=== PATIENT | male | born 1995 | race Caucasian/White ===

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

== ENCOUNTER 2019-07-16 04:18 | Emergency (ER) | payer SELFPAY ==
[~2019-07-16] VITALS: Ht 180.3 cm; Wt 78.0 kg
[~2019-07-16 04:18] MED LIST changes: -HYDR-3307 PO; +HYDR-36 PO
[2019-07-16 04:22] VITALS: BP 156/92
--- NOTE | 2019-07-16 04:26 | NUR ---
BIB [facility] c/o visual hallucinations since his cousin x a few months ago. No psych hx. Denies drug or alcohol use. Patient appears anxious. Respirations even and unlabored.
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
[2019-07-16 05:16] LABS: AMPHETAMINE SCREEN, URINE Negative (Negative); BARBITURATE SCREEN, URINE Negative (Negative); BENZODIAZEPINE SCREEN, URINE Positive (Negative); CANNABINOID SCREEN, URINE Positive (Negative); COCAINE SCREEN, URINE Positive (Negative); METHADONE SCREEN, URINE Negative (Negative); OPIATE SCREEN, URINE Negative (Negative)
[2019-07-16 05:22] LABS: BASOPHILS # (AUTO) 0.03 x10^3/uL (0-0.1); BASOPHILS % (AUTO) 0 % (0-1); EOSINOPHILS # (AUTO) 0.05 x10^3/uL (0-0.4); EOSINOPHILS % (AUTO) 1 % (1-7); LYMPHOCYTES # (AUTO) 0.71 x10^3/uL (1-3.4); LYMPHOCYTES % (AUTO) 11 % (22-44); MD NO; MEAN CORPUSCULAR HEMOGLOBIN 31.4 pg (27.5-34.5); MEAN CORPUSCULAR HGB CONC 33.9 g/dL (33.2-36.2); MEAN CORPUSCULAR VOLUME 92.5 fL (81-97); MEAN PLATELET VOLUME 8.8 fL (7.4-10.4); MONOCYTES # (AUTO) 0.52 x10^3/uL (0.2-0.8); MONOCYTES % (AUTO) 8 % (2-9); NEUTROPHILS # (AUTO) 5.48 x10^3/uL (1.8-6.8); NEUTROPHILS % (AUTO) 81 % (42-75); PLATELET COUNT 275 x10^3/uL (130-400); RED BLOOD COUNT 4.88 x10^6/uL (4.38-5.82); RED CELL DISTRIBUTION WIDTH 12.3 % (9.4-14.8)
[2019-07-16 05:31] LABS: ALBUMIN 4.6 g/dL (3.4-5.0); ANION GAP 6 mmol/L (5-15); CALCIUM 9.6 mg/dL (8.5-10.1); CHLORIDE 105 mmol/L (98-107); CREATININE 1.14 mg/dL (0.7-1.3); SALICYLATE LEVEL 2.5 mg/dL (2.8-20.0); T4 (THYROXINE) 10.4 mcg/dL (4.5-12.1)
--- NOTE | 2019-07-16 05:46 | NUR ---
Patient states he does not want to wait and wants to go home to sleep. Patient unable to get ahold of his sister or brother in law. Patient is AAOx4, GCS 15, and of sound mind. Patient advised of risks of leaving AMA. Patient states he understands and signed AMA. Patient given info for follow up. Taxi voucher given.
== END 2019-07-16 05:50 | disposition left against medical advice (07) ==
LOC: ED 04:54
DX: F23 Brief psychotic disorder (principal)
CPT/HCPCS: 36415; 80048; 80307; 82040; 84436; 84443; 85025; 99284

== ENCOUNTER 2019-09-23 13:00 | Inpatient (IN) | payer MEDICAID ==
[~2019-09-23] VITALS: Ht 180.3 cm; Wt 89.7 kg
[~2019-09-23 13:00] MED LIST changes: +HYDR-3246 PO; -HYDR-36 PO
[2019-09-23] MEDS ORDERED: SODIUM CHLORIDE 0.9% 1,000ML IVBOLUS ONE ×3 (13:30→18:30)
[2019-09-23] MEDS ORDERED: PLEASE ENTER HEIGHT AND WEIGHT MC SCH (13:30)
--- NOTE | 2019-09-23 13:38 | NUR ---
DIFFICULT TO GET PULSE OX ON PT. FINALLY ABLE TO GET A READING OF 94% ON 4L. PT UNCOOPERATIVE AND NOT ANSWERING QUESTIONGS. SAYS "NO" TO NASAL CANNULA AND "I CAN'T BREATHE" WHEN NON REBREATHER IN PLACE. XRAY AT BEDSIDE. PT REMAINS IN 4 POINT RESTRAINTS AT THIS TIME. WILL CONTINUE TO MONITOR
[2019-09-23] MEDS ORDERED: PIPERACILLIN/TAZO/PMX 3.375GM 50 ML IV ONE (14:00)
[2019-09-23 14:04] LABS: ALBUMIN 4.2 g/dL (3.4-5.0); ANION GAP 10 mmol/L (5-15); CHLORIDE 103 mmol/L (98-107)
[2019-09-23 14:12] LABS: ALANINE AMINOTRANSFERASE 1888 U/L (12-78); ALKALINE PHOSPHATASE 97 U/L (45-117); BILIRUBIN,TOTAL 0.9 mg/dL (0.2-1.0); CREATININE 2.46 mg/dL (0.7-1.3); TOTAL PROTEIN 8.2 g/dL (6.4-8.2)
--- NOTE | 2019-09-23 14:13 | NUR ---
INCONTINENT OF STOOL. REMOVED FROM RESTRAINTS. PT KNOWS HIS NAME BUT REMAINS ALTERED.
[2019-09-23] MEDS ORDERED: VANCOMYCIN PER PHARMACY MC PRN ×2 (14:30→18:30)
[2019-09-23] MEDS ORDERED: VANCOMYCIN 1,300 MG in SODIUM CHLORIDE 0.9% 250 ML IV ONE (14:30)
[2019-09-23 14:53] LABS: SALICYLATE LEVEL < 1.7 mg/dL (2.8-20.0)
[2019-09-23] MEDS ORDERED: INSULIN REGULAR 100 UNITS/ML, 3ML VIAL IVPush ONE (15:00)
[2019-09-23] MEDS ORDERED: SODIUM BICARB 8.4%, 50ML SYRINGE IVPush ONE (15:00)
[2019-09-23] MEDS ORDERED: CALCIUM CHLORIDE 10%, 10ML SYR IVPush ONE (15:00)
[2019-09-23] MEDS ORDERED: DEXTROSE 50%, 50ML SYRINGE IVPush ONE (15:00)
[2019-09-23] MEDS ORDERED: PIPERACILLIN/TAZO/PMX 3.375GM 50 ML ONE ×2 (15:01→20:10)
[2019-09-23 15:03] LABS: MEAN CORPUSCULAR HEMOGLOBIN 33.1 pg (27.5-34.5); MEAN CORPUSCULAR HGB CONC 35.5 g/dL (33.2-36.2); MEAN CORPUSCULAR VOLUME 93.4 fL (81-97); RED BLOOD COUNT 5.66 x10^6/uL (4.38-5.82); RED CELL DISTRIBUTION WIDTH 12.3 % (9.4-14.8)
[2019-09-23 15:21] LABS: MEAN PLATELET VOLUME 8.1 fL (7.4-10.4); PLATELET COUNT 204 x10^3/uL (130-400)
[2019-09-23] MEDS ORDERED: INSULIN LISPRO SINGLE DOSE, ER SQ-INSULIN ONE (15:21)
[2019-09-23] MEDS ORDERED: SODIUM BICARBONATE 1 MEQ/ML, 50ML VIAL ONE (15:21)
[2019-09-23] MEDS ORDERED: CALCIUM CHLORIDE 10%, 10ML SYR ONE (15:21)
[2019-09-23 15:24] LABS: MD YES
[2019-09-23 15:39] LABS: C-REACTIVE PROTEIN, QUANT 2.7 mg/dL (0.02-0.49)
[2019-09-23 16:09] LABS: D-DIMER (DIC) 3.02 ug/mlFEU (0.00-0.52); PROTIME 15.4 Seconds (9.6-11.5)
[2019-09-23 16:13] LABS: BAND#(MANUAL) 0.43 x10^3/uL; BANDS%(MANUAL) 10 % (0-7); LYMPH#(MANUAL) 0.39 x10^3/uL (1-3.4); LYMPHS% (MANUAL) 9 % (22-44); METAMYELOCYTES# (MANUAL) 0.26 x10^3/uL (0-0); METAMYELOCYTES% (MANUAL) 6 % (0-1); MONOS#(MANUAL) 0.26 x10^3/uL (0.3-2.7); MONOS% (MANUAL) 6 % (2-9); REACTIVE LYMPHS # (MANUAL) 0.09 x10^3/uL (0-0); REACTIVE LYMPHS % (MANUAL) 2 % (0-0); SEG#(MANUAL) 2.88 x10^3/uL (1.8-6.8); SEGS% (MANUAL) 67 % (42-75)
[2019-09-23 16:14] LABS: <PLATELET ESTIMATE> ADEQUATE; <PLT MORPHOLOGY> NORMAL PLT MORPH; <RBC MORPHOLOGY> NORMAL
--- NOTE | 2019-09-23 17:18 | NUR ---
TO CT AND BACK ON MONITOR WITH RN AND RAILROAD CAR CLEANER. PT RESPONDS TO STIMULUS BUT NOT TALKING. BREATHING EVEN AND UNLABORED.
[2019-09-23] MEDS ORDERED: PHARMACY MAY ADJ FOR RENAL FX MC PRN (18:30)
[2019-09-23] MEDS ORDERED: NALOXONE 0.4 MG/ML, 1ML IVPush PRN (18:30)
[2019-09-23] MEDS ORDERED: SODIUM CHLORIDE 0.9%, 500ML IVBOLUS PRN (18:30)
[2019-09-23 18:50] LABS: ANION GAP 7 mmol/L (5-15); CHLORIDE 108 mmol/L (98-107); CREATININE 2.39 mg/dL (0.7-1.3)
[2019-09-23] MEDS ORDERED: ACETAMINOPHEN 325 MG TABLET PO PRN (19:00)
[2019-09-23] MEDS ORDERED: methylPREDNISolone SOD SUCC 40 MG/ML IV SCH (19:00)
--- NOTE | 2019-09-23 19:02 | NUR ---
REPORT TO FLOOR RN. PT TO BE TRANSPORTED TO FLOOR.
--- NOTE | 2019-09-23 19:09 | NUR ---
RECEIVED BEDSIDE REPORT FROM BELA GODOY. PT LAYING IN BED, BEDRAILS UP, CONNECTED TO CARDIAC, BP AND O2 MONITORS. PT SLIGHTLY TACHY WITH HR 105, SATING 95% ON 7L O2 VIA SIMPLE MASK. PT NOW VERBALLY RESPONSIVE WHEN AROUSED WITH PAINFUL STIMULI. PT STATES HE SNORTED 1 PERCOCET LAST NIGHT. PT STATES HE CAN'T HEAR, BUT KNOWS WHERE HE IS AND WHY HE'S HERE.
[2019-09-23 19:27] LABS: BASOPHILS % (AUTO) 0 % (0-1); EOSINOPHILS % (AUTO) 0 % (1-7); LYMPHOCYTES # (AUTO) 0.25 x10^3/uL (1-3.4); LYMPHOCYTES % (AUTO) 7 % (22-44); MD NO; MEAN CORPUSCULAR HEMOGLOBIN 30.8 pg (27.5-34.5); MEAN CORPUSCULAR HGB CONC 33.2 g/dL (33.2-36.2); MEAN CORPUSCULAR VOLUME 92.9 fL (81-97); MEAN PLATELET VOLUME 8.3 fL (7.4-10.4); MONOCYTES # (AUTO) 0.37 x10^3/uL (0.2-0.8); MONOCYTES % (AUTO) 10 % (2-9); NEUTROPHILS # (AUTO) 2.96 x10^3/uL (1.8-6.8); NEUTROPHILS % (AUTO) 83 % (42-75); PLATELET COUNT 152 x10^3/uL (130-400); RED BLOOD COUNT 5.21 x10^6/uL (4.38-5.82); RED CELL DISTRIBUTION WIDTH 12.2 % (9.4-14.8)
[2019-09-23] MEDS ORDERED: methylPREDNISolone SOD SUCC 40 MG/ML ONE (20:10)
[2019-09-23 20:24] LABS: ANION GAP 7 mmol/L (5-15); CHLORIDE 110 mmol/L (98-107); CREATININE 2.54 mg/dL (0.7-1.3)
[2019-09-23] MEDS: PIPERACILLIN/TAZO/PMX 4.5GM 50 ML IVPB SCH (20:28)
--- NOTE | 2019-09-23 20:42 | NUR ---
PT AWAKES ON OWN TO ASK FOR WATER, PT ABLE TO DRINK WATER ON OWN. PT MEDICATED TO MAR, HOSPITAL BED REQUESTED.
[2019-09-23] MEDS ORDERED: SODIUM BICARBONATE 8.4% 150 MEQ in DEXTROSE 5% 1,000 ML IV SCH (21:00)
[2019-09-23] MEDS ORDERED: HEPARIN 25,000 UNITS/250ML PMX 250 ML ONE (21:01)
[2019-09-23] MEDS ORDERED: HEPARIN 5,000 UNITS/ML, 1ML ONE (21:01)
--- NOTE | 2019-09-23 21:16 | NUR ---
SPOKE WITH KATHLEEN HOSPITALIST. WILL ADVISE PHARMACY THAT WE ARE USING [facility] STEMI PROTOCOL.
[2019-09-23] MEDS: SODIUM CHLORIDE 0.9% 1,000 ML IV SCH (21:21)
[2019-09-23 21:22] LABS: CREATINE KINASE, TOTAL 35727 U/L (39-308)
--- NOTE | 2019-09-23 21:22 | NUR ---
[facility] [phone]
[2019-09-23] MEDS ORDERED: HEPARIN 25,000 UNITS/250ML PMX 250 ML IV PRN (21:30)
[2019-09-23] MEDS ORDERED: HEPARIN 5,000 UNITS/ML, 1ML IV ONE (21:30)
[2019-09-23] MEDS ORDERED: HEPARIN 5,000 UNITS/ML, 1ML IV PRN (21:30)
[2019-09-23] MEDS: SODIUM CHLORIDE 0.9%, 500ML IVBOLUS PRN ×2 (21:41→22:19)
--- NOTE | 2019-09-23 21:42 | NUR ---
PT REMAINS SOMNOLENT, AWAKES TO ASK FOR WATER, OTHERWISE ONLY RESPONSIVE TO PAINFUL STIMULI. RT REQUESTED MULTIPLE TIMES TO COME TO BEDSIDE TO START OPTIFLOW. MD TOBIAS AWARE AND OKAY THAT PT RECEIVED 3.375MG ZOSYN IN STEAD OF 4.5MG, NO ADJUSTMENTS TO BE MADE, NEXT DOSE OF ZOSYN SCHEDULED ON THE MAY. BOTH PAWAN SOMMER AND HOSPITALIST MICHELINE AWARE OF PT'S DECOMPENSATING BP, AWAITING FURTHER ORDERS; NO ORDERS RECIEVED AT THIS TIME. THIS RN HAS BEEN AT BEDSIDE SINCE APPROX 2029 FOR PT CARE. WILL CONTINUE TO MONITOR. Addendum: 09/26/19 at 1748 by RENETTA MD TOBIAS AWARE AND OKAY THAT PT RECEIVED 3.375 GRAMS ZOSYN IN STEAD OF 4.5 GRAMS, NO ADJUSTMENTS TO BE MADE, NEXT DOSE OF ZOSYN SCHEDULED ON THE MAY.
--- NOTE | 2019-09-23 21:56 | NUR ---
VERBAL ORDER FROM HOSPTIALIST FOR ABG. LAB CALLED FOR STAT DRAW.
--- NOTE | 2019-09-23 21:57 | NUR ---
WHEN HEPARIN DRIP ORDERED, CONFIRMED WITH MD THAT NO EKG WAS TO BE ORDERED.
--- NOTE | 2019-09-23 22:27 | NUR ---
Talked to hospitalist about potential for upgrading pt. Hospitalist states to upgrade pt to icu and for this rn to put in the order.
[2019-09-23] MEDS ORDERED: SODIUM BICARB 8.4%, 50ML SYRINGE IVPush STA (23:03)
[2019-09-23 23:06] LABS: MICROSCOPIC AUTO
[2019-09-23 23:14] LABS: AMPHETAMINE SCREEN, URINE Negative (Negative); BARBITURATE SCREEN, URINE Negative (Negative); BENZODIAZEPINE SCREEN, URINE Negative (Negative); CANNABINOID SCREEN, URINE Positive (Negative); COCAINE SCREEN, URINE Positive (Negative); METHADONE SCREEN, URINE Negative (Negative); OPIATE SCREEN, URINE Negative (Negative)
--- NOTE | 2019-09-23 23:57 | NUR ---
PT RESPONSIVE TO PAIN INCLUDING BP CUFF. PT STATES HIS RIGHT LEG HURTS. PT ABLE TO LIFT SELF UP FOR THIS RN TO PLACE A PILLOW UNDER RIGHT SIDE. PT AWARE OF WHEN HIGH FLOW NC IS NOT PROPERLY PLACED IN NOSE AND ASKS THIS RN TO ADJUST IT. HOSPITALIST TO BEDSIDE.
--- NOTE | 2019-09-24 00:14 | NUR ---
REPORT GIVEN TO ENRIQUE POLITICAL WORKER.
[2019-09-24] MEDS ORDERED: SODIUM BICARBONATE 8.4% 150 MEQ in DEXTROSE 5% 1,000 ML IV SCH (00:30)
[2019-09-24 00:32] LABS: ANION GAP 5 mmol/L (5-15); CALCIUM 7.1 mg/dL (8.5-10.1); CHLORIDE 109 mmol/L (98-107); CREATININE 2.76 mg/dL (0.7-1.3)
[2019-09-24 00:49] VITALS: BP 146/71
[2019-09-24 01:00] VITALS: BP 135/78
[2019-09-24] MEDS ORDERED: PHARMACOKINETIC CONSULTATION MC ONE (01:00)
[2019-09-24] MEDS ORDERED: PHARMACOKINETIC MONITORING MC PRN (01:00)
[2019-09-24] MEDS: PIPERACILLIN/TAZO/PMX 4.5GM 50 ML IVPB SCH (01:53)
[2019-09-24 04:00] VITALS: BP 118/78
[2019-09-24 04:54] LABS: ANION GAP 5 mmol/L (5-15); CALCIUM 6.8 mg/dL (8.5-10.1); CHLORIDE 105 mmol/L (98-107); CREATININE 3.22 mg/dL (0.7-1.3)
[2019-09-24 04:59] LABS: MEAN CORPUSCULAR HEMOGLOBIN 30.7 pg (27.5-34.5); MEAN CORPUSCULAR HGB CONC 32.7 g/dL (33.2-36.2); MEAN CORPUSCULAR VOLUME 93.9 fL (81-97); MEAN PLATELET VOLUME 8.6 fL (7.4-10.4); PLATELET COUNT 142 x10^3/uL (130-400); RED BLOOD COUNT 4.59 x10^6/uL (4.38-5.82); RED CELL DISTRIBUTION WIDTH 12.3 % (9.4-14.8)
[2019-09-24 05:18] LABS: MD YES
[2019-09-24 05:20] LABS: LYMPH#(MANUAL) 0.19 x10^3/uL (1-3.4); LYMPHS% (MANUAL) 2 % (22-44); METAMYELOCYTES# (MANUAL) 0.47 x10^3/uL (0-0); METAMYELOCYTES% (MANUAL) 5 % (0-1); MONOS#(MANUAL) 0.38 x10^3/uL (0.3-2.7); MONOS% (MANUAL) 4 % (2-9)
[2019-09-24 05:21] LABS: <PLATELET ESTIMATE> ADEQUATE; <PLT MORPHOLOGY> NORMAL PLT MORPH; <RBC MORPHOLOGY> NORMAL; BAND#(MANUAL) 3.67 x10^3/uL; BANDS%(MANUAL) 39 % (0-7); SEGS% (MANUAL) 50 % (42-75)
[2019-09-24] MEDS ORDERED: PIPERACILLIN/TAZO/PMX 2.25GM 50 ML IV SCH (08:00)
[2019-09-24] MEDS ORDERED: MAGNESIUM SULFATE PMX 2GM/50ML 50 ML IV ONE (08:00)
[2019-09-24] MEDS: SODIUM CHLORIDE 0.9% 1,000 ML IV SCH ×3 (08:32→23:35)
[2019-09-24 08:55] LABS: ALBUMIN 2.6 g/dL (3.4-5.0); ANION GAP 7 mmol/L (5-15); CALCIUM 7.3 mg/dL (8.5-10.1); CHLORIDE 104 mmol/L (98-107)
[2019-09-24 09:15] LABS: ALANINE AMINOTRANSFERASE 1172 U/L (12-78); ALKALINE PHOSPHATASE 45 U/L (45-117); BILIRUBIN,TOTAL 1.1 mg/dL (0.2-1.0); CREATININE 3.52 mg/dL (0.7-1.3); TOTAL PROTEIN 5.4 g/dL (6.4-8.2)
[2019-09-24] MEDS: AMPICILLIN/SULBACTAM 3 GM in SODIUM CHLORIDE 0.9% 100 ML IV SCH ×2 (11:15→20:30)
[2019-09-24 13:00] VITALS: BP 135/90
[2019-09-24] MEDS: HEPARIN 5,000 UNITS/ML, 1ML SQ SCH (17:49)
[2019-09-24 20:31] VITALS: BP 135/90
[2019-09-24 23:31] VITALS: BP 134/88
[2019-09-25] MEDS: AMPICILLIN/SULBACTAM 3 GM in SODIUM CHLORIDE 0.9% 100 ML IV SCH ×2 (04:38→12:30)
[2019-09-25] MEDS: SODIUM CHLORIDE 0.9% 1,000 ML IV SCH ×3 (05:55→20:35)
[2019-09-25] MEDS: HEPARIN 5,000 UNITS/ML, 1ML SQ SCH ×2 (05:56→20:49)
[2019-09-25 06:28] LABS: CHLORIDE 106 mmol/L (98-107)
[2019-09-25 06:34] LABS: MEAN CORPUSCULAR HEMOGLOBIN 31.1 pg (27.5-34.5); MEAN CORPUSCULAR HGB CONC 33.9 g/dL (33.2-36.2); MEAN CORPUSCULAR VOLUME 91.6 fL (81-97); MEAN PLATELET VOLUME 9.1 fL (7.4-10.4); PLATELET COUNT 139 x10^3/uL (130-400); RED BLOOD COUNT 3.94 x10^6/uL (4.38-5.82); RED CELL DISTRIBUTION WIDTH 12.5 % (9.4-14.8)
[2019-09-25 06:41] LABS: ALANINE AMINOTRANSFERASE 763 U/L (12-78); ALBUMIN 2.4 g/dL (3.4-5.0); ALKALINE PHOSPHATASE 38 U/L (45-117); ANION GAP 9 mmol/L (5-15); BILIRUBIN,TOTAL 0.7 mg/dL (0.2-1.0); CALCIUM 7.8 mg/dL (8.5-10.1); CREATININE 5.12 mg/dL (0.7-1.3); TOTAL PROTEIN 5.3 g/dL (6.4-8.2)
[2019-09-25 06:55] LABS: MD YES
[2019-09-25 06:57] LABS: <PLATELET ESTIMATE> ADEQUATE; <PLT MORPHOLOGY> NORMAL PLT MORPH; <RBC MORPHOLOGY> NORMAL; BAND#(MANUAL) 1.93 x10^3/uL; BANDS%(MANUAL) 18 % (0-7); LYMPH#(MANUAL) 0.64 x10^3/uL (1-3.4); LYMPHS% (MANUAL) 6 % (22-44); METAMYELOCYTES# (MANUAL) 0.11 x10^3/uL (0-0); METAMYELOCYTES% (MANUAL) 1 % (0-1); MONOS#(MANUAL) 0.54 x10^3/uL (0.3-2.7); MONOS% (MANUAL) 5 % (2-9); SEG#(MANUAL) 7.49 x10^3/uL (1.8-6.8); SEGS% (MANUAL) 70 % (42-75)
[2019-09-25 07:16] LABS: CREATINE KINASE, TOTAL 7991 U/L (39-308)
[2019-09-25 09:55] VITALS: BP 144/92
[2019-09-25] MEDS: ONDANSETRON 2MG/ML, 2ML IVPush PRN (12:31)
[2019-09-25 12:37] VITALS: BP 143/93
[2019-09-25 12:38] LABS: ABSOLUTE RETICS # 0.063 x10^6/uL (0.5-1.5); RED BLOOD COUNT 4.03 x10^6/uL (4.38-5.82); RETICULOCYTE COUNT % 1.56 % (0.5-1.5)
[2019-09-25 12:40] LABS: CALCIUM 8.1 mg/dL (8.5-10.1)
[2019-09-25 20:17] VITALS: BP 136/83
[2019-09-25] MEDS ORDERED: AMPICILLIN/SULBACTAM 3 GM in SODIUM CHLORIDE 0.9% 100 ML IV SCH (21:00)
[2019-09-26] MEDS: ONDANSETRON 2MG/ML, 2ML IVPush PRN (00:19)
[2019-09-26 02:45] VITALS: BP 142/88
[2019-09-26 06:15] LABS: MEAN CORPUSCULAR HEMOGLOBIN 30.5 pg (27.5-34.5); MEAN CORPUSCULAR HGB CONC 32.9 g/dL (33.2-36.2); MEAN CORPUSCULAR VOLUME 92.6 fL (81-97); MEAN PLATELET VOLUME 9.5 fL (7.4-10.4); PLATELET COUNT 135 x10^3/uL (130-400); RED BLOOD COUNT 4.11 x10^6/uL (4.38-5.82); RED CELL DISTRIBUTION WIDTH 12.4 % (9.4-14.8)
[2019-09-26 06:26] LABS: BASOPHILS # (AUTO) 0.01 x10^3/uL (0-0.1); BASOPHILS % (AUTO) 0 % (0-1); EOSINOPHILS % (AUTO) 0 % (1-7); LYMPHOCYTES # (AUTO) 0.78 x10^3/uL (1-3.4); LYMPHOCYTES % (AUTO) 6 % (22-44); MD SCAN; MONOCYTES # (AUTO) 0.73 x10^3/uL (0.2-0.8); MONOCYTES % (AUTO) 6 % (2-9); NEUTROPHILS # (AUTO) 10.89 x10^3/uL (1.8-6.8); NEUTROPHILS % (AUTO) 88 % (42-75)
[2019-09-26 06:33] LABS: CHLORIDE 106 mmol/L (98-107)
[2019-09-26 06:51] LABS: ALANINE AMINOTRANSFERASE 548 U/L (12-78); ALBUMIN 2.3 g/dL (3.4-5.0); ALKALINE PHOSPHATASE 52 U/L (45-117); ANION GAP 10 mmol/L (5-15); BILIRUBIN,TOTAL 0.6 mg/dL (0.2-1.0); CALCIUM 8.2 mg/dL (8.5-10.1); CREATININE 4.69 mg/dL (0.7-1.3); TOTAL PROTEIN 5.4 g/dL (6.4-8.2)
[2019-09-26 08:01] VITALS: BP 150/89
[2019-09-26] MEDS: HEPARIN 5,000 UNITS/ML, 1ML SQ SCH (08:04)
[2019-09-26] MEDS: SODIUM CHLORIDE 0.9% 1,000 ML IV SCH ×2 (08:04→19:44)
[2019-09-26] MEDS: ERGOCALCIFEROL 50,000 UNIT CAPSULE PO SCH (13:03)
[2019-09-26 13:26] VITALS: BP 151/90
[2019-09-26] MEDS: CALCIUM/VITAMIN D3 250-125 TABLET PO SCH ×2 (13:28→19:44)
[2019-09-26] MEDS: FERROUS SULFATE 325 MG TABLET PO SCH (13:28)
[2019-09-26 14:55] VITALS: BP 146/82
[2019-09-26 19:51] VITALS: BP 131/74
[2019-09-27 00:32] VITALS: BP 160/92
[2019-09-27] MEDS: SODIUM CHLORIDE 0.9% 1,000 ML IV SCH ×2 (03:46→09:45)
[2019-09-27 05:44] LABS: BASOPHILS # (AUTO) 0.04 x10^3/uL (0-0.1); BASOPHILS % (AUTO) 0 % (0-1); EOSINOPHILS # (AUTO) 0.02 x10^3/uL (0-0.4); EOSINOPHILS % (AUTO) 0 % (1-7); LYMPHOCYTES % (AUTO) 7 % (22-44); MD NO; MEAN CORPUSCULAR HEMOGLOBIN 31.1 pg (27.5-34.5); MEAN CORPUSCULAR HGB CONC 34.1 g/dL (33.2-36.2); MEAN CORPUSCULAR VOLUME 91.1 fL (81-97); MEAN PLATELET VOLUME 8.9 fL (7.4-10.4); MONOCYTES # (AUTO) 0.68 x10^3/uL (0.2-0.8); MONOCYTES % (AUTO) 7 % (2-9); NEUTROPHILS # (AUTO) 8.75 x10^3/uL (1.8-6.8); NEUTROPHILS % (AUTO) 86 % (42-75); PLATELET COUNT 154 x10^3/uL (130-400); RED BLOOD COUNT 4.03 x10^6/uL (4.38-5.82); RED CELL DISTRIBUTION WIDTH 12.1 % (9.4-14.8)
[2019-09-27] MEDS: ONDANSETRON 2MG/ML, 2ML IVPush PRN (05:49)
[2019-09-27 05:55] LABS: ANION GAP 5 mmol/L (5-15); CALCIUM 8.2 mg/dL (8.5-10.1); CHLORIDE 108 mmol/L (98-107); CREATININE 4.52 mg/dL (0.7-1.3)
[2019-09-27 05:57] VITALS: BP 148/78
[2019-09-27 09:10] VITALS: BP 161/97
[2019-09-27] MEDS: CALCIUM/VITAMIN D3 250-125 TABLET PO SCH ×2 (09:14→21:19)
[2019-09-27] MEDS ORDERED: PROCHLORPERAZINE 5 MG/ML, 2ML IVPush PRN (12:00)
[2019-09-27 13:01] VITALS: BP 165/92
[2019-09-27 19:48] VITALS: BP 168/92
[2019-09-28 00:33] VITALS: BP 166/98
[2019-09-28 04:42] LABS: CHLORIDE 104 mmol/L (98-107)
[2019-09-28 05:02] LABS: ALBUMIN 2.3 g/dL (3.4-5.0); ANION GAP 8 mmol/L (5-15); CALCIUM 8.2 mg/dL (8.5-10.1); CREATINE KINASE, TOTAL 5584 U/L (39-308); CREATININE 4.44 mg/dL (0.7-1.3)
[2019-09-28 07:59] VITALS: BP 170/94
[2019-09-28] MEDS ORDERED: HEPARIN 5,000 UNITS/ML, 1ML IV ONE (08:00)
[2019-09-28] MEDS ORDERED: HEPARIN 25,000 UNITS/250ML PMX 250 ML IV PRN (08:00)
[2019-09-28] MEDS ORDERED: HEPARIN 5,000 UNITS/ML, 1ML IV PRN (08:00)
[2019-09-28] MEDS: ONDANSETRON 2MG/ML, 2ML IVPush PRN ×2 (08:33→16:02)
[2019-09-28] MEDS: CALCIUM/VITAMIN D3 250-125 TABLET PO SCH ×2 (08:35→20:15)
[2019-09-28] MEDS: ASPIRIN 81 MG TABLET EC PO SCH (08:42)
[2019-09-28] MEDS: GABAPENTIN 100 MG CAPSULE PO SCH ×3 (08:43→20:16)
[2019-09-28] MEDS ORDERED: POTASSIUM CHLORIDE 20 MEQ TAB.ER.PRT PO ONE (09:00)
[2019-09-28] MEDS: FERROUS SULFATE 325 MG TABLET PO SCH (13:37)
[2019-09-28] MEDS: HEPARIN 5,000 UNITS/ML, 1ML SQ SCH ×2 (13:37→20:16)
[2019-09-28 13:46] VITALS: BP 161/94
[2019-09-28] MEDS: ATORVASTATIN 40 MG TABLET PO SCH (20:15)
[2019-09-28 20:19] VITALS: BP 170/95
[2019-09-29 00:41] VITALS: BP 164/98
[2019-09-29] MEDS: ONDANSETRON 2MG/ML, 2ML IVPush PRN ×2 (06:30→22:16)
[2019-09-29] MEDS: HEPARIN 5,000 UNITS/ML, 1ML SQ SCH ×3 (06:30→21:05)
[2019-09-29] MEDS: ASPIRIN 81 MG TABLET EC PO SCH (06:30)
[2019-09-29 07:25] VITALS: BP 153/99
[2019-09-29] MEDS: GABAPENTIN 100 MG CAPSULE PO SCH ×4 (08:37→21:04)
[2019-09-29] MEDS: CALCIUM/VITAMIN D3 250-125 TABLET PO SCH ×2 (08:38→21:04)
[2019-09-29 09:19] LABS: ALBUMIN 2.9 g/dL (3.4-5.0); ANION GAP 8 mmol/L (5-15); CHLORIDE 101 mmol/L (98-107); CREATININE 6.27 mg/dL (0.7-1.3)
[2019-09-29 12:31] VITALS: BP 157/100
[2019-09-29 14:33] LABS: CREATINE KINASE, TOTAL 2658 U/L (39-308)
[2019-09-29] MEDS: LACTOBACILLUS CHEW TABLET PO SCH ×3 (16:00→21:04)
[2019-09-29] MEDS: ATORVASTATIN 40 MG TABLET PO SCH (21:04)
[2019-09-29 21:22] VITALS: BP 170/101
[2019-09-29] MEDS ORDERED: hydrALAzine 20 MG/ML, 1ML IV ONE (21:30)
[2019-09-29 22:14] VITALS: BP 152/84
[2019-09-30 00:27] VITALS: BP 152/93
[2019-09-30] MEDS: HEPARIN 5,000 UNITS/ML, 1ML SQ SCH ×3 (05:25→21:00)
[2019-09-30] MEDS: ASPIRIN 81 MG TABLET EC PO SCH (05:25)
[2019-09-30 05:59] LABS: ALBUMIN 2.3 g/dL (3.4-5.0); CALCIUM 8.5 mg/dL (8.5-10.1); CHLORIDE 105 mmol/L (98-107)
[2019-09-30 06:17] LABS: ANION GAP 7 mmol/L (5-15); CREATINE KINASE, TOTAL 1061 U/L (39-308); CREATININE 5.25 mg/dL (0.7-1.3)
[2019-09-30 06:52] VITALS: BP 146/88
[2019-09-30 08:22] VITALS: BP 155/91
[2019-09-30] MEDS: LACTOBACILLUS CHEW TABLET PO SCH ×3 (08:22→21:00)
[2019-09-30] MEDS: CALCIUM/VITAMIN D3 250-125 TABLET PO SCH ×2 (08:22→21:00)
[2019-09-30] MEDS: GABAPENTIN 100 MG CAPSULE PO SCH ×3 (08:22→21:00)
[2019-09-30 13:16] VITALS: BP 148/86
[2019-09-30] MEDS: FERROUS SULFATE 325 MG TABLET PO SCH (15:15)
[2019-09-30] MEDS: ONDANSETRON 2MG/ML, 2ML IVPush PRN (16:23)
[2019-09-30 20:59] VITALS: BP 155/86
[2019-09-30] MEDS: ATORVASTATIN 40 MG TABLET PO SCH (21:00)
[2019-10-01 00:16] VITALS: BP 152/76
[2019-10-01] MEDS: HEPARIN 5,000 UNITS/ML, 1ML SQ SCH ×3 (05:06→21:53)
[2019-10-01] MEDS: ASPIRIN 81 MG TABLET EC PO SCH (05:06)
[2019-10-01 06:59] VITALS: BP 146/82
[2019-10-01 11:03] VITALS: BP 168/88
[2019-10-01] MEDS: CALCIUM/VITAMIN D3 250-125 TABLET PO SCH ×2 (11:08→21:54)
[2019-10-01] MEDS: GABAPENTIN 100 MG CAPSULE PO SCH ×3 (11:08→21:54)
[2019-10-01] MEDS: FUROSEMIDE 20 MG TABLET PO SCH (11:08)
[2019-10-01] MEDS: LACTOBACILLUS CHEW TABLET PO SCH ×3 (11:08→21:54)
[2019-10-01] MEDS: ONDANSETRON 2MG/ML, 2ML IVPush PRN (11:21)
[2019-10-01 12:51] VITALS: BP 150/85
[2019-10-01 16:10] VITALS: BP 148/82
[2019-10-01 21:47] VITALS: BP 149/87
[2019-10-01] MEDS: ATORVASTATIN 40 MG TABLET PO SCH (21:54)
[2019-10-02 01:46] VITALS: BP 153/90
[2019-10-02] MEDS: OXYcodone IR 5MG TABLET PO PRN ×2 (01:57→21:55)
[2019-10-02 05:24] LABS: ALBUMIN 2.1 g/dL (3.4-5.0); ANION GAP 6 mmol/L (5-15); CALCIUM 8.1 mg/dL (8.5-10.1); CHLORIDE 101 mmol/L (98-107)
[2019-10-02 05:30] LABS: CREATINE KINASE, TOTAL 484 U/L (39-308); CREATININE 6.43 mg/dL (0.7-1.3)
[2019-10-02 05:38] LABS: BASOPHILS # (AUTO) 0.04 x10^3/uL (0-0.1); BASOPHILS % (AUTO) 0 % (0-1); EOSINOPHILS # (AUTO) 0.29 x10^3/uL (0-0.4); EOSINOPHILS % (AUTO) 2 % (1-7); LYMPHOCYTES # (AUTO) 1.25 x10^3/uL (1-3.4); LYMPHOCYTES % (AUTO) 10 % (22-44); MD NO; MEAN CORPUSCULAR HEMOGLOBIN 30.5 pg (27.5-34.5); MEAN CORPUSCULAR HGB CONC 33.4 g/dL (33.2-36.2); MEAN CORPUSCULAR VOLUME 91.4 fL (81-97); MEAN PLATELET VOLUME 9.7 fL (7.4-10.4); MONOCYTES # (AUTO) 1.24 x10^3/uL (0.2-0.8); MONOCYTES % (AUTO) 9 % (2-9); NEUTROPHILS # (AUTO) 10.34 x10^3/uL (1.8-6.8); NEUTROPHILS % (AUTO) 79 % (42-75); PLATELET COUNT 187 x10^3/uL (130-400); RED BLOOD COUNT 4.16 x10^6/uL (4.38-5.82); RED CELL DISTRIBUTION WIDTH 12.4 % (9.4-14.8)
[2019-10-02 08:06] VITALS: BP 153/84
[2019-10-02] MEDS: FUROSEMIDE 20 MG TABLET PO SCH ×2 (08:12→11:16)
[2019-10-02] MEDS: ASPIRIN 81 MG TABLET EC PO SCH (08:13)
[2019-10-02] MEDS: LACTOBACILLUS CHEW TABLET PO SCH ×3 (08:13→21:16)
[2019-10-02] MEDS: CALCIUM/VITAMIN D3 250-125 TABLET PO SCH ×2 (08:13→21:17)
[2019-10-02] MEDS: GABAPENTIN 100 MG CAPSULE PO SCH (08:13)
[2019-10-02] MEDS: HEPARIN 5,000 UNITS/ML, 1ML SQ SCH ×3 (08:13→23:49)
[2019-10-02] MEDS: METOPROLOL TARTRATE 25 MG TAB PO SCH ×3 (08:13→23:49)
[2019-10-02] MEDS: FERROUS SULFATE 325 MG TABLET PO SCH (12:40)
[2019-10-02 15:43] VITALS: BP 154/88
[2019-10-02] MEDS: GABAPENTIN 300 MG CAPSULE PO SCH ×2 (15:47→21:18)
[2019-10-02 18:54] VITALS: BP 148/87
[2019-10-02] MEDS: ATORVASTATIN 40 MG TABLET PO SCH (21:17)
[2019-10-03 02:20] VITALS: BP 151/81
[2019-10-03] MEDS: ASPIRIN 81 MG TABLET EC PO SCH (05:37)
[2019-10-03 06:04] LABS: BASOPHILS # (AUTO) 0.02 x10^3/uL (0-0.1); BASOPHILS % (AUTO) 0 % (0-1); EOSINOPHILS # (AUTO) 0.33 x10^3/uL (0-0.4); EOSINOPHILS % (AUTO) 2 % (1-7); LYMPHOCYTES # (AUTO) 1.05 x10^3/uL (1-3.4); LYMPHOCYTES % (AUTO) 7 % (22-44); MD NO; MEAN CORPUSCULAR HEMOGLOBIN 30.9 pg (27.5-34.5); MEAN CORPUSCULAR HGB CONC 33.7 g/dL (33.2-36.2); MEAN CORPUSCULAR VOLUME 91.6 fL (81-97); MEAN PLATELET VOLUME 9.7 fL (7.4-10.4); MONOCYTES # (AUTO) 1.18 x10^3/uL (0.2-0.8); MONOCYTES % (AUTO) 8 % (2-9); NEUTROPHILS # (AUTO) 13.21 x10^3/uL (1.8-6.8); NEUTROPHILS % (AUTO) 84 % (42-75); PLATELET COUNT 205 x10^3/uL (130-400); RED BLOOD COUNT 3.77 x10^6/uL (4.38-5.82); RED CELL DISTRIBUTION WIDTH 12.5 % (9.4-14.8)
[2019-10-03 06:15] LABS: ALBUMIN 2.2 g/dL (3.4-5.0); ANION GAP 8 mmol/L (5-15); CALCIUM 7.9 mg/dL (8.5-10.1); CHLORIDE 100 mmol/L (98-107)
[2019-10-03 07:07] VITALS: BP 147/83
[2019-10-03] MEDS: CALCIUM/VITAMIN D3 250-125 TABLET PO SCH ×2 (08:22→21:15)
[2019-10-03] MEDS: HEPARIN 5,000 UNITS/ML, 1ML SQ SCH ×2 (08:22→16:59)
[2019-10-03] MEDS: GABAPENTIN 300 MG CAPSULE PO SCH ×3 (08:22→21:15)
[2019-10-03] MEDS: LACTOBACILLUS CHEW TABLET PO SCH ×3 (08:22→21:16)
[2019-10-03 09:07] LABS: MICROSCOPIC AUTO
[2019-10-03] MEDS: ERGOCALCIFEROL 50,000 UNIT CAPSULE PO SCH (12:37)
[2019-10-03] MEDS: METOPROLOL TARTRATE 25 MG TAB PO SCH ×2 (12:37→16:58)
[2019-10-03 12:38] VITALS: BP 165/94
[2019-10-03] MEDS: FUROSEMIDE 20 MG TABLET PO SCH (12:38)
[2019-10-03 16:56] VITALS: BP 161/93
[2019-10-03] MEDS: ATORVASTATIN 40 MG TABLET PO SCH (21:16)
[2019-10-03 21:17] VITALS: BP 153/89
[2019-10-03] MEDS: OXYcodone IR 5MG TABLET PO PRN (21:32)
[2019-10-04] MEDS: METOPROLOL TARTRATE 25 MG TAB PO SCH ×3 (00:16→15:11)
[2019-10-04] MEDS: HEPARIN 5,000 UNITS/ML, 1ML SQ SCH ×3 (00:17→15:11)
[2019-10-04 00:22] VITALS: BP 166/92
[2019-10-04] MEDS: OXYcodone IR 5MG TABLET PO PRN ×2 (04:10→12:29)
[2019-10-04] MEDS: ASPIRIN 81 MG TABLET EC PO SCH (05:50)
[2019-10-04 06:23] VITALS: BP 146/76
[2019-10-04 07:00] LABS: BASOPHILS # (AUTO) 0.04 x10^3/uL (0-0.1); BASOPHILS % (AUTO) 0 % (0-1); EOSINOPHILS # (AUTO) 0.32 x10^3/uL (0-0.4); EOSINOPHILS % (AUTO) 2 % (1-7); LYMPHOCYTES # (AUTO) 1.15 x10^3/uL (1-3.4); LYMPHOCYTES % (AUTO) 8 % (22-44); MD NO; MEAN CORPUSCULAR HEMOGLOBIN 30.6 pg (27.5-34.5); MEAN CORPUSCULAR HGB CONC 33.5 g/dL (33.2-36.2); MEAN CORPUSCULAR VOLUME 91.4 fL (81-97); MONOCYTES # (AUTO) 1.29 x10^3/uL (0.2-0.8); MONOCYTES % (AUTO) 9 % (2-9); NEUTROPHILS % (AUTO) 81 % (42-75); PLATELET COUNT 239 x10^3/uL (130-400); RED BLOOD COUNT 3.61 x10^6/uL (4.38-5.82); RED CELL DISTRIBUTION WIDTH 12.8 % (9.4-14.8)
[2019-10-04 07:08] LABS: ALANINE AMINOTRANSFERASE 80 U/L (12-78); ALBUMIN 2.1 g/dL (3.4-5.0); ANION GAP 6 mmol/L (5-15); BILIRUBIN, DIRECT 0.2 mg/dL (0.1-0.2); CALCIUM 8.2 mg/dL (8.5-10.1); CHLORIDE 102 mmol/L (98-107); CREATININE 5.92 mg/dL (0.7-1.3)
[2019-10-04 07:10] LABS: ALKALINE PHOSPHATASE 71 U/L (45-117); BILIRUBIN,INDIRECT 0.3 mg/dL (0.0-2.0); BILIRUBIN,TOTAL 0.5 mg/dL (0.2-1.0); TOTAL PROTEIN 5.6 g/dL (6.4-8.2)
[2019-10-04] MEDS: LACTOBACILLUS CHEW TABLET PO SCH ×3 (09:28→22:37)
[2019-10-04] MEDS: GABAPENTIN 300 MG CAPSULE PO SCH ×3 (09:28→22:37)
[2019-10-04] MEDS: FUROSEMIDE 20 MG TABLET PO SCH (09:29)
[2019-10-04] MEDS: CALCIUM/VITAMIN D3 250-125 TABLET PO SCH ×2 (09:29→22:37)
[2019-10-04] MEDS: FERROUS SULFATE 325 MG TABLET PO SCH (14:32)
[2019-10-04 14:49] VITALS: BP 156/84
[2019-10-04] MEDS: ONDANSETRON 2MG/ML, 2ML IVPush PRN (15:12)
[2019-10-04] MEDS ORDERED: ACETAMINOPHEN 325 MG TABLET ONE (16:27)
[2019-10-04] MEDS: ACETAMINOPHEN 325 MG TABLET PO PRN ×2 (16:28→22:47)
[2019-10-04 19:36] VITALS: BP 149/88
[2019-10-04] MEDS: TEMAZEPAM 15 MG CAPSULE PO PRN (22:37)
[2019-10-04] MEDS: ATORVASTATIN 40 MG TABLET PO SCH (22:38)
[2019-10-05 01:26] VITALS: BP 131/72
[2019-10-05] MEDS: HEPARIN 5,000 UNITS/ML, 1ML SQ SCH ×4 (01:31→23:52)
[2019-10-05] MEDS: METOPROLOL TARTRATE 25 MG TAB PO SCH ×4 (01:31→23:51)
[2019-10-05] MEDS: OXYcodone IR 5MG TABLET PO PRN ×3 (03:34→21:49)
[2019-10-05] MEDS: ASPIRIN 81 MG TABLET EC PO SCH (06:11)
[2019-10-05] MEDS: ONDANSETRON 2MG/ML, 2ML IVPush PRN (06:18)
[2019-10-05 07:26] VITALS: BP 165/93
[2019-10-05 07:47] LABS: ANION GAP 7 mmol/L (5-15); CALCIUM 8.8 mg/dL (8.5-10.1); CHLORIDE 100 mmol/L (98-107); CREATININE 7.53 mg/dL (0.7-1.3)
[2019-10-05] MEDS: GABAPENTIN 300 MG CAPSULE PO SCH ×3 (09:00→21:41)
[2019-10-05] MEDS: LACTOBACILLUS CHEW TABLET PO SCH ×3 (09:00→21:41)
[2019-10-05] MEDS: ACETAMINOPHEN 325 MG TABLET PO PRN (09:01)
[2019-10-05] MEDS: FUROSEMIDE 20 MG TABLET PO SCH (09:01)
[2019-10-05] MEDS: CALCIUM/VITAMIN D3 250-125 TABLET PO SCH ×2 (09:01→21:41)
[2019-10-05 13:44] VITALS: BP 145/79
[2019-10-05 18:44] VITALS: BP 146/77
[2019-10-05] MEDS: ATORVASTATIN 40 MG TABLET PO SCH (21:41)
[2019-10-05] MEDS: TEMAZEPAM 15 MG CAPSULE PO PRN (21:41)
[2019-10-06 01:08] VITALS: BP 154/85
[2019-10-06] MEDS: ASPIRIN 81 MG TABLET EC PO SCH (06:33)
[2019-10-06] MEDS: OXYcodone IR 5MG TABLET PO PRN ×3 (06:37→23:40)
[2019-10-06 06:42] VITALS: BP 162/89
[2019-10-06] MEDS: METOPROLOL TARTRATE 25 MG TAB PO SCH ×3 (08:00→23:50)
[2019-10-06] MEDS: HEPARIN 5,000 UNITS/ML, 1ML SQ SCH ×2 (08:40→17:19)
[2019-10-06] MEDS: GABAPENTIN 300 MG CAPSULE PO SCH ×3 (08:40→21:46)
[2019-10-06] MEDS: LACTOBACILLUS CHEW TABLET PO SCH ×3 (08:40→21:46)
[2019-10-06 08:48] LABS: ANION GAP 9 mmol/L (5-15); CALCIUM 8.2 mg/dL (8.5-10.1); CHLORIDE 100 mmol/L (98-107); CREATININE 7.47 mg/dL (0.7-1.3)
[2019-10-06] MEDS: POLYETHYLENE GLYCOL 17 GM PACKET PO SCH (09:30)
[2019-10-06 16:23] VITALS: BP 138/82
[2019-10-06] MEDS: FERROUS SULFATE 325 MG TABLET PO SCH (17:14)
[2019-10-06 19:49] VITALS: BP 164/88
[2019-10-06] MEDS: ATORVASTATIN 40 MG TABLET PO SCH (21:46)
[2019-10-07 00:04] VITALS: BP 150/83
[2019-10-07] MEDS: METOPROLOL TARTRATE 25 MG TAB PO SCH ×3 (01:12→18:06)
[2019-10-07] MEDS: HEPARIN 5,000 UNITS/ML, 1ML SQ SCH ×3 (01:13→18:05)
[2019-10-07] MEDS: OXYcodone IR 5MG TABLET PO PRN ×3 (06:01→18:05)
[2019-10-07] MEDS: ASPIRIN 81 MG TABLET EC PO SCH (06:01)
[2019-10-07 07:10] LABS: BASOPHILS # (AUTO) 0.05 x10^3/uL (0-0.1); BASOPHILS % (AUTO) 0 % (0-1); EOSINOPHILS # (AUTO) 0.32 x10^3/uL (0-0.4); EOSINOPHILS % (AUTO) 3 % (1-7); LYMPHOCYTES # (AUTO) 1.25 x10^3/uL (1-3.4); LYMPHOCYTES % (AUTO) 11 % (22-44); MD NO; MEAN CORPUSCULAR HEMOGLOBIN 30.1 pg (27.5-34.5); MEAN CORPUSCULAR HGB CONC 32.4 g/dL (33.2-36.2); MEAN PLATELET VOLUME 8.5 fL (7.4-10.4); MONOCYTES # (AUTO) 1.27 x10^3/uL (0.2-0.8); MONOCYTES % (AUTO) 11 % (2-9); NEUTROPHILS # (AUTO) 8.47 x10^3/uL (1.8-6.8); NEUTROPHILS % (AUTO) 75 % (42-75); PLATELET COUNT 331 x10^3/uL (130-400); RED BLOOD COUNT 3.44 x10^6/uL (4.38-5.82); RED CELL DISTRIBUTION WIDTH 12.9 % (9.4-14.8)
[2019-10-07 07:16] LABS: ANION GAP 6 mmol/L (5-15); CALCIUM 7.9 mg/dL (8.5-10.1); CHLORIDE 103 mmol/L (98-107)
[2019-10-07 07:17] LABS: CREATININE 4.92 mg/dL (0.7-1.3)
[2019-10-07 07:20] VITALS: BP 147/71
[2019-10-07] MEDS: POLYETHYLENE GLYCOL 17 GM PACKET PO SCH (09:00)
[2019-10-07] MEDS ORDERED: TEMAZEPAM 15 MG CAPSULE PO PRN (09:30)
[2019-10-07] MEDS: LACTOBACILLUS CHEW TABLET PO SCH ×3 (11:11→20:39)
[2019-10-07] MEDS: GABAPENTIN 300 MG CAPSULE PO SCH ×3 (11:12→20:39)
[2019-10-07 13:09] VITALS: BP 151/81
[2019-10-07 18:03] VITALS: BP 153/91
[2019-10-07 19:21] VITALS: BP 143/86
[2019-10-07] MEDS: ATORVASTATIN 40 MG TABLET PO SCH (20:39)
[2019-10-08] MEDS: OXYcodone IR 5MG TABLET PO PRN ×2 (00:24→06:04)
[2019-10-08 01:02] VITALS: BP 159/81
[2019-10-08 01:15] VITALS: BP 144/76
[2019-10-08] MEDS: METOPROLOL TARTRATE 25 MG TAB PO SCH ×3 (01:16→15:42)
[2019-10-08] MEDS: HEPARIN 5,000 UNITS/ML, 1ML SQ SCH ×3 (01:17→17:27)
[2019-10-08] MEDS: ASPIRIN 81 MG TABLET EC PO SCH (06:04)
[2019-10-08 06:43] VITALS: BP 144/82
[2019-10-08 07:41] LABS: BASOPHILS # (AUTO) 0.11 x10^3/uL (0-0.1); BASOPHILS % (AUTO) 1 % (0-1); EOSINOPHILS # (AUTO) 0.25 x10^3/uL (0-0.4); EOSINOPHILS % (AUTO) 2 % (1-7); LYMPHOCYTES # (AUTO) 1.42 x10^3/uL (1-3.4); LYMPHOCYTES % (AUTO) 14 % (22-44); MD NO; MEAN CORPUSCULAR HGB CONC 32.2 g/dL (33.2-36.2); MEAN CORPUSCULAR VOLUME 93.1 fL (81-97); MEAN PLATELET VOLUME 8.8 fL (7.4-10.4); MONOCYTES # (AUTO) 1.29 x10^3/uL (0.2-0.8); MONOCYTES % (AUTO) 12 % (2-9); NEUTROPHILS # (AUTO) 7.41 x10^3/uL (1.8-6.8); NEUTROPHILS % (AUTO) 71 % (42-75); PLATELET COUNT 373 x10^3/uL (130-400); RED BLOOD COUNT 3.58 x10^6/uL (4.38-5.82); RED CELL DISTRIBUTION WIDTH 12.8 % (9.4-14.8)
[2019-10-08 07:50] LABS: ANION GAP 5 mmol/L (5-15); CALCIUM 7.9 mg/dL (8.5-10.1); CHLORIDE 106 mmol/L (98-107); CREATININE 5.12 mg/dL (0.7-1.3)
[2019-10-08] MEDS: GABAPENTIN 300 MG CAPSULE PO SCH ×3 (08:45→20:29)
[2019-10-08] MEDS: LACTOBACILLUS CHEW TABLET PO SCH ×3 (08:45→20:29)
[2019-10-08] MEDS: POLYETHYLENE GLYCOL 17 GM PACKET PO SCH (08:45)
[2019-10-08 12:50] VITALS: BP 143/84
[2019-10-08] MEDS: FERROUS SULFATE 325 MG TABLET PO SCH (15:42)
[2019-10-08 20:09] VITALS: BP 159/92
[2019-10-08] MEDS: ATORVASTATIN 40 MG TABLET PO SCH (20:29)
[2019-10-08] MEDS ORDERED: ZOLPIDEM 10MG TABLET PO SCH (21:00)
[2019-10-09 02:10] VITALS: BP 153/84
[2019-10-09] MEDS: OXYcodone IR 5MG TABLET PO PRN (02:36)
[2019-10-09] MEDS: METOPROLOL TARTRATE 25 MG TAB PO SCH ×2 (02:36→08:28)
[2019-10-09] MEDS: HEPARIN 5,000 UNITS/ML, 1ML SQ SCH ×2 (02:36→08:26)
[2019-10-09] MEDS: ASPIRIN 81 MG TABLET EC PO SCH (05:42)
[2019-10-09 06:36] LABS: ANION GAP 8 mmol/L (5-15); CALCIUM 8.4 mg/dL (8.5-10.1); CHLORIDE 106 mmol/L (98-107); CREATININE 4.68 mg/dL (0.7-1.3)
[2019-10-09 07:18] VITALS: BP 146/85
[2019-10-09] MEDS: GABAPENTIN 300 MG CAPSULE PO SCH (08:25)
[2019-10-09] MEDS: LACTOBACILLUS CHEW TABLET PO SCH (08:27)
[2019-10-09] MEDS: POLYETHYLENE GLYCOL 17 GM PACKET PO SCH (08:29)
[2019-10-09] MEDS ORDERED: BISACODYL 10 MG SUPP PR ONE (11:00)
[2019-10-09 12:03] VITALS: BP 152/88
[2019-10-09] MEDS: ACETAMINOPHEN 325 MG TABLET PO PRN (12:09)
[2019-10-09] MEDS ORDERED: FERR-51 PO (12:59)
[2019-10-09] MEDS ORDERED: ASPI81TA45 PO (12:59)
[2019-10-09] MEDS ORDERED: GABA300C PO (12:59)
[2019-10-09] MEDS ORDERED: METO25TA35 PO (12:59)
[2019-10-09] MEDS ORDERED: ATOR40TA78 PO (12:59)
[2019-10-09] MEDS ORDERED: HYDR-3343 PO (12:59)
== END 2019-10-09 14:50 | disposition home or self-care (01) | DRG 720 ==
LOC: ED 13:30 → EDIP 17:49 → ICU 09-24 00:25 → 5SO 09-25 23:54 → 4WST 10-02 06:24
PROVIDERS: ADMIT Internal Medicine; ATTEND Hospitalist
PROC: 5A1D70Z Performance of Urinary Filtration, Intermittent, Less than 6 Hours Per Day (ICD-10-PCS; 2019-09-25)
PROC: 5A1D70Z Performance of Urinary Filtration, Intermittent, Less than 6 Hours Per Day (ICD-10-PCS; 2019-09-26)
PROC: 5A1D70Z Performance of Urinary Filtration, Intermittent, Less than 6 Hours Per Day (ICD-10-PCS; 2019-09-27)
PROC: 5A1D70Z Performance of Urinary Filtration, Intermittent, Less than 6 Hours Per Day (ICD-10-PCS; 2019-09-29)
PROC: 5A1D70Z Performance of Urinary Filtration, Intermittent, Less than 6 Hours Per Day (ICD-10-PCS; 2019-10-01)
PROC: 0T9B70Z Drainage of Bladder with Drainage Device, Via Natural or Artificial Opening (ICD-10-PCS; principal; 2019-10-03)
PROC: 5A1D70Z Performance of Urinary Filtration, Intermittent, Less than 6 Hours Per Day (ICD-10-PCS; 2019-10-03)
PROC: 5A1D70Z Performance of Urinary Filtration, Intermittent, Less than 6 Hours Per Day (ICD-10-PCS; 2019-10-06)
DX: A41.89 Other specified sepsis (principal); D50.9 Iron deficiency anemia, unspecified; E55.9 Vitamin D deficiency, unspecified; E87.2 Acidosis; E87.5 Hyperkalemia; E87.6 Hypokalemia; T40.5X1A Poisoning by cocaine, accidental (unintentional), initial encounter; E88.09 Other disorders of plasma-protein metabolism, not elsewhere classified; F12.10 Cannabis abuse, uncomplicated; F14.10 Cocaine abuse, uncomplicated; F19.20 Other psychoactive substance dependence, uncomplicated; F29 Unspecified psychosis not due to a substance or known physiological condition; F32.9 Major depressive disorder, single episode, unspecified; F41.9 Anxiety disorder, unspecified; I12.0 Hypertensive chronic kidney disease with stage 5 chronic kidney disease or end stage renal disease; I21.A1 Myocardial infarction type 2; I74.9 Embolism and thrombosis of unspecified artery; I74.3 Embolism and thrombosis of arteries of the lower extremities; J32.9 Chronic sinusitis, unspecified; J96.01 Acute respiratory failure with hypoxia; K72.00 Acute and subacute hepatic failure without coma; K75.89 Other specified inflammatory liver diseases; M60.9 Myositis, unspecified; M62.82 Rhabdomyolysis; N17.0 Acute kidney failure with tubular necrosis; N18.6 End stage renal disease; F10.10 Alcohol abuse, uncomplicated; Y90.9 Presence of alcohol in blood, level not specified; I95.9 Hypotension, unspecified; T40.601A Poisoning by unspecified narcotics, accidental (unintentional), initial encounter; Z82.49 Family history of ischemic heart disease and other diseases of the circulatory system; Z99.2 Dependence on renal dialysis; Y92.9 Unspecified place or not applicable; R65.21 Severe sepsis with septic shock; Z03.818 Encounter for observation for suspected exposure to other biological agents ruled out; J18.9 Pneumonia, unspecified organism
CPT/HCPCS: 36415; 36556; 36600; 70450; 71045; 76700; 76937; 77001; 80048; 80053; 80069; 80074; 80076; 80307; 81001; 82140; 82306; 82310; 82330; 82375; 82550; 82728; 82803; 82962; 83540; 83550; 83605; 83615; 83735; 83880; 83970; 84100; 84145; 84484; 84550; 85025; 85045; 85049; 85379; 85384; 85520; 85610; 85730; 86140; 86480; 86706; 87040; 87081; 87086; 87635; 90935; 93005; 93306; 93356; 93922; 93970; 96365; 96375; 99292; G0378; J0295; J1644; J2405; J2543; J3370; J7070; C1751; J0360; J0780; J1642; J2920; J3475; J7030; J7040; J7050